=== PATIENT | female | born 1960 | race Caucasian/White ===

== ENCOUNTER → 2019-12-26 | Outpatient (CLI) | payer MEDICAID, MEDICARE ==
[~2019-12-26] MED LIST: ALPR0.25 PO; CEPH-368 PO; DIPH25CA61 PO; HYDR-3240 PO; ONDA4TAB10 PO; PRED5TAB19 PO
== END | disposition home or self-care (01) ==
LOC: CFH 12:36
PROVIDERS: ATTEND Family Medicine
DX: R23.4 Changes in skin texture (principal); Z85.3 Personal history of malignant neoplasm of breast
CPT/HCPCS: 76642; 77066; G0279

== ENCOUNTER 2020-01-01 15:56 | Emergency (ER) | payer MEDICARE ==
[~2020-01-01] VITALS: Ht 172.7 cm; Wt 60.1 kg
[2020-01-01 16:02] VITALS: BP 120/78
[2020-01-01] MEDS ORDERED: LIDOCAINE-MPF 1%, 5ML ONE (16:14)
--- NOTE | 2020-01-01 16:20 | NUR ---
Assumed care of patient. C/O lac to right elbow. NAD. Will continue to monitor.
[2020-01-01] MEDS ORDERED: LIDOCAINE 2%, 20ML SQ ONE (16:30)
== END 2020-01-01 17:37 | disposition home or self-care (01) ==
LOC: ED 17:15
DX: S51.011A Laceration without foreign body of right elbow, initial encounter (principal); W22.8XXA Striking against or struck by other objects, initial encounter; Y93.89 Activity, other specified; Y92.009 Unspecified place in unspecified non-institutional (private) residence as the place of occurrence of the external cause; Y99.8 Other external cause status
CPT/HCPCS: 12032; 99284